=== PATIENT | male | born 1940 | race Caucasian/White ===

== ENCOUNTER → 2019-12-28 | Outpatient (CLI) | payer MEDICARE, BC ==
[2019-12-28 13:25] LABS: African American GFR (CKD) >90 (>60 ml/min/1.73 sqM); Blood Urea Nitrogen 13 mg/dL (9-20); Non-African American GFR(CKD) 83 (>60 ml/min/1.73 sqM)
--- NOTE | 2019-12-28 16:42 | CT ---
EXAMINATION TYPE: CT facial bones w con DATE OF EXAM: 12/28/2019 COMPARISON: None HISTORY: Lt nasal skin lesion, history of neoplasm CT DLP: 818 mGycm CONTRAST: 100 ml mL of Isovue 300 The facial bones are examined in the axial plane at 2 mm thick sections. Reconstructed images in the coronal plane were obtained. There is soft tissue abnormality at the left nasal fold. This extends towards the left nasal bone. T his area extends into the lower nasal passage along the anterior maxillary wall at the level of the m axilla. This measures 2.4 transverse by 2.2 AP by 2.4 cm craniocaudal. Bone erosion is not identified . This may extend into the nares. On the soft tissue windows anterior to the maxilla the density of t he soft tissue may cross the midline. Extension past the midline of the soft tissue mass anterior to the maxilla cannot be excluded. Consider MRI with contrast for closer evaluation of the soft tissues. Exam prior ethmoidectomy. There is opacification of the lateral left frontal sinus. A few nasal polyp s or mucosal thickening is within the ethmoid air cells spaces. Uncinate ectomy is appear to be perfo rmed. Small retention cyst within the inferior maxillary sinuses. There is a retention cyst or polyp within the left sphenoid sinus. The septum is evaluated. There is septal deviation to the left. The ostiomeatal units are patent. IMPRESSIONS: 1. Soft tissue mass at the left nasal fold may transverse into the nares and extends to the facial b one and anterior maxillary sinus wall without evidence of erosion. Is difficult to exclude some cross ing of the midline at the level of the maxillary spine. MRI of the soft tissues with contrast may be useful for additional evaluation. 2. Scattered areas of mucosal thickening, small retention cysts or polyps within postsurgical paranas al sinuses.
== END | disposition home or self-care (01) ==
LOC: RADCTMAIN 12:40
PROVIDERS: ATTEND Otolaryngology
DX: J34.89 Other specified disorders of nose and nasal sinuses (principal); L98.9 Disorder of the skin and subcutaneous tissue, unspecified; C30.0 Malignant neoplasm of nasal cavity
CPT/HCPCS: 82565; 84520; 70487; 36415; Q9967

== ENCOUNTER → 2020-01-18 | Outpatient (CLI) | payer MEDICARE, BC ==
[2020-01-18 09:39] LABS: African American GFR (CKD) >90 (>60 ml/min/1.73 sqM); Blood Urea Nitrogen 16 mg/dL (9-20); Non-African American GFR(CKD) 84 (>60 ml/min/1.73 sqM)
--- NOTE | 2020-01-18 11:09 | CT ---
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 Coronal/sagittal reconstructions performed. CT DLP: 660.1 mGycm Automated exposure control for dose reduction was used. FINDINGS: NECK: Possible underlying 1.4 cm nodule within the right lobe of the thyroid gland. Submandibular glands ar e satisfactory. Parotid glands are atrophic. Abnormal soft tissue mass along the left lateral aspect at the junction of the nose and maxilla measu ring 2.5 x 1.2 cm. There may be very subtle early cortical remodeling/erosion of the underlying left paramedian maxilla adjacent to the maxillary spine. Visualized intracranial structures show no gross abnormality. Mastoid air cells appear clear. Severe mucosal thickening left sphenoid sinus. Mild within the maxillary sinuses. Nasopharynx appears clear. [id number] bilateral lingual tonsillar hypertrophy. Epiglottis and prevertebral soft tissues appear within normal limits. Some distortion of the anterior right thyroid cartilage probably old trauma. Glottic and subglottic s tructures as well as the tracheal column appear clear. Prominent but not enlarged 6 mm left submandibular space lymph node. No cervical lymphadenopathy by C T size criteria. Bulky anterior endplate spondylosis towards the right at C5-C7 levels. CHEST: Heart normal size without pericardial effusion. Mild aneurysm ascending aorta 4.1 cm an ectatic upper descending thoracic aorta at 3.2 cm. Impression large vessel branching anatomy. No thoracic lymphadenopathy by CT size criteria. Some strandy atelectasis in the lower lungs. No consolidation or pleural effusion. Post surgical change at the GE junction but with a small to moderate-sized hiatal hernia. Otherwise, visualized upper abdomen shows no gross abnormality. Bones: Bridging anterior endplate spondylosis mid to lower thoracic spine compatible with DISH. IMPRESSION: NECK: 1. 2.5 X 1.2 CM ABNORMAL SOFT TISSUES/NEOPLASM on the left at the junction of the nose and cheek. Angus y subtle focal bony remodeling/erosion of the underlying maxilla adjacent to the maxillary spine. 2. No findings of metastatic disease in the neck. 3. Possible underlying 1.4 cm right thyroid lobe nodule. Dedicated thyroid ultrasound could further e valuate. CHEST: 1. Mild aneurysm ascending aorta 4.1 cm. 2. No suspicious nodule or mass within the chest. 3. Post surgical change at the GE junction but with a small to moderate size hiatal hernia. Correlate for possible recurrent hiatal hernia after prior repair.
== END | disposition home or self-care (01) ==
LOC: RADCTMAIN 08:02
PROVIDERS: ATTEND Otolaryngology
DX: I71.2 Thoracic aortic aneurysm, without rupture (principal); K44.9 Diaphragmatic hernia without obstruction or gangrene; C49.0 Malignant neoplasm of connective and soft tissue of head, face and neck; Z98.890 Other specified postprocedural states
CPT/HCPCS: 82565; 84520; 70491; 71260; 36415; Q9967

== ENCOUNTER → 2020-02-17 | Outpatient (CLI) | payer MEDICARE, BC | END | disposition home or self-care (01) | LOC: LABWHC1 09:42 | PROVIDERS: ATTEND Otolaryngology | DX: Z01.818 Encounter for other preprocedural examination (principal) ==

== ENCOUNTER → 2020-03-07 | Outpatient (CLI) | payer MEDICARE, BC | END | disposition home or self-care (01) | LOC: LABWHC1 13:15 | PROVIDERS: ATTEND Otolaryngology | DX: Z01.818 Encounter for other preprocedural examination (principal) | CPT/HCPCS: U0003; C9803 ==

== ENCOUNTER → 2020-09-17 | Outpatient (CLI) | payer MEDICARE, BC ==
[2020-09-17 11:25] LABS: African American GFR (CKD) >90 (>60 ml/min/1.73 sqM); Blood Urea Nitrogen 16 mg/dL (9-20); Non-African American GFR(CKD) 82 (>60 ml/min/1.73 sqM)
--- NOTE | 2020-09-17 12:31 | CT ---
EXAMINATION TYPE: CT neck chest w con DATE OF EXAM: 09/17/2020 COMPARISON: CT neck and chest January 18, 2020. HISTORY: Follow up scan per patient, cancer of head face and neck. CT DLP: 674.1 mGycm. Automated Exposure Control for Dose Reduction was Utilized. TECHNIQUE: CT scan of the thorax is performed following with IV Contrast, patient injected with 100 mL of Isovue 300. FINDINGS: NECK: Interval surgical change left anterior nasal region with numerous clips and distortion, partial resec tion of portion of the left maxilla at this level. No suspicious recurrent mass. There is also interval left-sided neck dissection with surgical clips beginning submandibular region extending inferiorly to the inferior aspect of the hyoid bone. No suspicious greater than 1 cm neck a denopathy. Left submandibular gland is now surgically absent. Airway remains patent. Heterogeneous thyroid gland redemonstrated. CHEST: LUNGS: Mild underlying emphysematous change redemonstrated. No new suspicious nodules or masses. No p leural effusion or pneumothorax.. MEDIASTINUM: There are no new greater than 1 cm hilar or mediastinal lymph nodes. No cardiomegaly o r pericardial effusion is seen. Ascending aortic aneurysmal to 4.1 cm redemonstrated. OTHER: Surgical changes near gastroesophageal junction redemonstrated with stable small recurrent hia danilo hernia. Multilevel spurring in the spine seen. Small degree of bilateral subareolar gynecomastia redemonstrated. Multilevel spurring of spine redemonstrated. IMPRESSION: Interval extensive left-sided surgery . No new nodules or adenopathy to suggest active ne oplastic recurrence.
== END | disposition home or self-care (01) ==
LOC: RADCTMAIN 10:50
PROVIDERS: ATTEND Otolaryngology
DX: C76.0 Malignant neoplasm of head, face and neck (principal); D14.0 Benign neoplasm of middle ear, nasal cavity and accessory sinuses; Z98.890 Other specified postprocedural states
CPT/HCPCS: 82565; 84520; 70491; 71260; Q9967

== ENCOUNTER → 2020-12-31 | Outpatient (CLI) | payer MEDICARE, BC | END | disposition home or self-care (01) | LOC: LABWHC1 10:24 | PROVIDERS: ATTEND Otolaryngology | DX: Z01.812 Encounter for preprocedural laboratory examination (principal); Z20.822 Contact with and (suspected) exposure to COVID-19 | CPT/HCPCS: U0003; C9803; U0005 ==

== ENCOUNTER → 2022-03-11 | Outpatient (CLI) | payer MEDICARE, BC ==
--- NOTE | 2022-03-11 13:40 | CT ---
EXAMINATION TYPE: CT neck chest w con, CT soft tissue neck wo con DATE OF EXAM: 03/11/2022 1:20 PM COMPARISON: CT neck chest 09/17/2020, 01/18/2020. HISTORY: Benign neoplasm of middle ear, nasal cavity and sinus CT DLP: 857 mGycm Automated exposure control for dose reduction was used. TECHNIQUE: CT scan of the neck and is performed following with IV Contrast, patient injected with 100 mL of Isovue 300. CT of the neck was also performed without contrast before. FINDINGS: NECK: Redemonstration of postsurgical changes of the left anterior nasal region with numerous clips a nd distortion, partial resection of portion of the left maxilla at this level. No suspicious recurren t mass. There is also redemonstration of left-sided neck dissection with surgical clips beginning sub mandibular region extending inferiorly to the inferior aspect of the hyoid bone. No suspicious greate r than 1 cm neck adenopathy. Left submandibular gland is surgically absent. Airway remains patent. He terogeneous thyroid gland redemonstrated. Paranasal sinus disease. CHEST: LUNGS: Mild underlying emphysematous change redemonstrated. No new suspicious nodules or masses. No p leural effusion or pneumothorax. MEDIASTINUM: There are no new greater than 1 cm hilar or mediastinal lymph nodes. No cardiomegaly or pericardial effusion is seen. Stable ascending aortic aneurysmal to 4.1 cm redemonstrated. Stable sma ll pericardial cyst. OTHER: Surgical changes near gastroesophageal junction redemonstrated with stable small recurrent hia danilo hernia. Multilevel spurring in the spine seen. IMPRESSION: * Extensive left-sided facial surgery and left neck dissection changes redemonstrated. No evidence f or recurrence. No suspicious lymphadenopathy. * Stable ascending aortic aneurysm measuring up to 4.1 cm.
== END | disposition home or self-care (01) ==
LOC: RADCTMAIN 11:53
PROVIDERS: ATTEND Radiology Radiation Oncology
DX: D14.0 Benign neoplasm of middle ear, nasal cavity and accessory sinuses (principal); I71.4 Abdominal aortic aneurysm, without rupture; Z92.3 Personal history of irradiation; Z98.890 Other specified postprocedural states
CPT/HCPCS: 82565; 84520; 70490; 70491; 71260; 36415; Q9967

== ENCOUNTER 2023-02-10 07:32 | Day surgery (SDC) | payer MEDICARE, BC ==
--- NOTE | 2023-02-06 07:31 | P.HPIHPCON ---
History of Present Illness H&P Date: 02/06/23 Chief Complaint: Bilateral hydroceles This is an 82-year-old male with history of large bilateral hydroceles, he is symptomatic from his hydroceles. Option of bilateral hydrocelectomy was discussed. aware of risk which includes but not limited to bleeding, infection, and injury to the testicle. Discussed also the risk of recurrence. Medical complication from surgery was also discussed. He understood all the risk and agreed to proceed with a bilateral hydrocelectomy Consent for Procedure: I have explained the operation/procedure to the patient, including the risks, benefits, side effects, alternative therapies (including not receiving the proposed treatment or service), the likelihood of the patient achieving his/her goals, and potential recuperation problems for the procedure/sedation/analgesia, as well as any blood products, if indicated. I also explained to the patient the risks, benefits and side effects of the alternatives, as well as the risks related to not receiving the proposed procedure, care, treatment, or services. Medications and Allergies Allergies Allergy/AdvReac Type Severity Reaction Status Date / Time No Known Allergies Allergy Verified 02/05/23 12:42 Surgical - Exam - General no distress, no pain - Eyes normal ocular movement, no pale - ENT normal nares, normal mucosa - Respiratory normal expansion, normal respiratory effort - Abdomen Abdomen: soft, non tender - Genitourinary bilateral: scrotal mass/hydrocele Assessment and Plan Assessment: OR for bilateral hydrocelectomy
[~2023-02-10 07:32] MED LIST: DEXAMETHASONE SOD PHOSPHATE 4 MG/ML 1 ML VIAL IV ONE; HYDROmorphone 0.5 MG/0.5 ML SYRINGE IVP PRN; LACTATED RINGERS 1,000 ML IV SCH; LIDOCAINE 1% (10MG/ML) FOR IV START INTRADERMA PRN; MIDAZOLAM 2 MG/2 ML VIAL IV PRN; ONDANSETRON 4 MG/2 ML VIAL IVP ONE
[2023-02-10] MEDS ORDERED: PROPOFOL 10 MG/ML 20 ML VIAL IV ONE (08:45)
[2023-02-10] MEDS ORDERED: LIDOCAINE 2% INJ 20 MG/ML (2 ML VIAL) ONE (08:45)
[2023-02-10] MEDS ORDERED: SUCCINYLCHOLINE CHLORIDE 200 MG/10 ML VIAL IV ONE (08:45)
[2023-02-10] MEDS ORDERED: fentaNYL (PF) 50 MCG/ML 2 ML AMP ONE (08:45)
[2023-02-10] MEDS ORDERED: BUPIVACAINE (PF) 0.25% 30 ML VIAL SQ ONE ×2 (08:49→09:07)
--- NOTE | 2023-02-10 09:59 | P.OP ---
Date of Procedure: 02/10/23 Preoperative Diagnosis: Bilateral hydrocele Postoperative Diagnosis: Same Procedure(s) Performed: Bilateral hydrocelectomy Implants: None Anesthesia: SILVIA Surgeon: Mg Gonsalves Estimated Blood Loss (ml): 25 Pathology: other (Bilateral hydrocele sac) Condition: stable Disposition: PACU Indications for Procedure: This is an 82-year-old male with history of large bilateral hydroceles, he is symptomatic from his hydroceles. Option of bilateral hydrocelectomy was discussed. aware of risk which includes but not limited to bleeding, infection, and injury to the testicle. Discussed also the risk of recurrence. Medical complication from surgery was also discussed. He understood all the risk and agreed to proceed with a bilateral hydrocelectomy Operative Findings: Large bilateral hydroceles Description of Procedure: Patient brought to the operating room, general anesthesia was induced. He was prepped and draped in sterile fashion and placed in supine position. Next an incision was made along the median raphae using a scalpel. Dartos fascia was incised using electrocautery. Next attention was carried to the right hydrocele sac and it was dissected off. Next the hydrocele sac was delivered to the surgical field. Next an incision was made in the hydrocele sac and fluid was drained from the hydrocele sac. Next the hydrocele sac was excised and sent to pathology. The edges the hydrocele sac was cauterized. Next the testicle was returned into normal anatomical position in the right scrotal cavity. Attention was then carried to the left side and an incision was made in the dartos along the left side, left hydrocele sac was dissected off and delivered to the field. Next an incision was made in the hydrocele sac and fluid was drained. The hydrocele sac was excised and the edges the hydrocele sac was cauterized. Next the testicle was returned back to the scrotum in normal anatomical lay. Hemostasis was achieved using cautery. At this time the right side was closed u sing 3-0 Vicryl, the same was performed also on the left using 3-0 Vicryl. Next the skin was closed using 4-0 chromic. Skin glue was applied to the incision. Patient tolerated procedure was taken to recovery in stable condition
[2023-02-10 10:09] VITALS: TEMP 97.5
[2023-02-10 10:23] VITALS: RESP 16
[2023-02-10 10:48] VITALS: PULSE 60
[2023-02-10 10:54] VITALS: BP 143/74
== END 2023-02-10 11:35 | disposition home or self-care (01) ==
LOC: OR 07:32
PROVIDERS: ATTEND Urology
DX: N43.3 Hydrocele, unspecified (principal); Z79.899 Other long term (current) drug therapy
CPT/HCPCS: 55041; J0330; J1100; J0690; J2405; J3010; J2704; J2001; 88302

== ENCOUNTER → 2024-12-13 | Outpatient (CLI) | payer MEDICARE, BC ==
--- NOTE | 2024-12-13 16:16 | US ---
EXAMINATION TYPE: US venous doppler duplex LE BI DATE OF EXAM: 12/13/2024 4:07 PM COMPARISON: NONE CLINICAL INDICATION: Male, 84 years old with history of R600 LOCALIZED EDEMA; Edema, not on blood thi nners, Pain TECHNIQUE: The lower extremity deep venous system is examined utilizing real time linear array sonog emiliano with graded compression, color doppler sonography, and spectral doppler. SIDE PERFORMED: Bilateral FINDINGS: VESSELS IMAGED: Common Femoral Vein Deep Femoral Vein Greater Saphenous Vein * Femoral Vein Popliteal Vein Small Saphenous Vein * Proximal Calf Veins (* superficial vessels) Right Leg: Negative for DVT, Color Doppler imaging shows patency of the vessels. Spectral waveforms are within normal limits. Left Leg: Negative for DVT, Color Doppler imaging shows patency of the vessels. Spectral waveforms a re within normal limits. IMPRESSION: No evidence for DVT within the bilateral lower extremities imaged from the groin to the upper calves. [facility], Workstation: [email or web address], 12/13/2024 4:14 PM
--- NOTE | 2024-12-13 20:37 | XR ---
EXAMINATION TYPE: XR Hip Complete 2 views LT, XR lumbar spine 3V, XR femur 2 views LT, XR pelvis AP view DATE OF EXAM: 12/13/2024 4:40 PM COMPARISON: None CLINICAL INDICATION: Male, 84 years old with history of PAIN; PHH, pain FINDINGS: Lumbar spine: Bridging and partially bridging endplate spondylosis upper to mid lumbar spine. 5 lumbar type vertebr al bodies. Hypertrophic facet arthropathy especially mid to lower lumbar spine. Mild multilevel degen erative disc disease. Vertebral body heights are preserved and alignment is maintained. DISH within t he lower thoracic spine extending to involve down to the L2 level. Pelvis and left hip: SI joints appear symmetric and intact. There is mild degenerative change of both hips, left greater t bermudez right with marginal spurring. Subchondral cyst within the superolateral weightbearing aspect of t he left acetabulum. Small pelvic phleboliths. Pubic symphysis is intact. No acute fracture, subluxati on, dislocation. Left femur: Tricompartmental degenerative spurring at the knee. There is moderate to severe narrowing of cartilag e and joint space within the medial compartment. No acute fracture, subluxation, or dislocation is se en. IMPRESSION: 1. Lumbar spine: DISH lower thoracic spine extending down to L2. Hypertrophic facet arthropathy espec ially mid to lower lumbar spine. Mild multilevel degenerative disc disease. No vertebral compression collapse or malalignment. 2. Pelvis and left hip: Mild bilateral hip OA, left greater than right. No acute osseous abnormality seen. 3. Left femur: Tricompartmental osteoarthrosis of the knee, moderate to severe in the medial compartm ent. No acute osseous abnormality seen. [facility], , 12/13/2024 8:34 PM
== END | disposition home or self-care (01) ==
LOC: RADUSWWP 15:38
PROVIDERS: ATTEND Family Medicine
DX: M51.360 Other intervertebral disc degeneration, lumbar region with discogenic back pain only (principal); R60.0 Localized edema; M47.816 Spondylosis without myelopathy or radiculopathy, lumbar region; M16.0 Bilateral primary osteoarthritis of hip; M17.12 Unilateral primary osteoarthritis, left knee
CPT/HCPCS: 72100; 72170; 73502; 93970